=== PATIENT | male | born 1945 | race African-American/Black ===

== ENCOUNTER 2016-12-18 11:40 | Emergency (ER) | payer OTHER ==
[~2016-12-18] VITALS: Ht 175.3 cm; Wt 93.6 kg
[~2016-12-18 11:40] MED LIST: ALBU8.5H IH; HYDR-3971 PO; LOVA20 PO; NIFE-4 PO; OMEP20 PO
[2016-12-18] MEDS ORDERED: AMIT50TA3 PO (11:51)
[2016-12-18] MEDS ORDERED: GABA-531 PO (11:51)
[2016-12-18] MEDS ORDERED: KETOROLAC TROMETHAMINE 30 MG/ML VIAL IVP ONE (13:00)
[2016-12-18 13:10] VITALS: BP 139/79
== END 2016-12-18 13:36 | disposition home or self-care (01) ==
LOC: EMS 11:42
DX: M79.641 Pain in right hand (principal); M79.642 Pain in left hand; E78.00 Pure hypercholesterolemia, unspecified; I10 Essential (primary) hypertension; F17.210 Nicotine dependence, cigarettes, uncomplicated
CPT/HCPCS: 96374; 99284; J1885

== ENCOUNTER 2016-12-19 11:38 | Emergency (ER) | payer OTHER ==
[~2016-12-19] VITALS: Ht 175.3 cm; Wt 93.6 kg
[~2016-12-19 11:38] MED LIST changes: +AMIT50TA3 PO; +GABA-531 PO
[2016-12-19 12:49] VITALS: BP 133/69
[2016-12-19] MEDS ORDERED: LORazepam 1 MG TABLET PO ONE (13:30)
== END 2016-12-19 13:36 | disposition home or self-care (01) ==
LOC: EMS 11:41
DX: M79.622 Pain in left upper arm (principal); M79.621 Pain in right upper arm; G47.00 Insomnia, unspecified; F41.9 Anxiety disorder, unspecified; E78.00 Pure hypercholesterolemia, unspecified; I10 Essential (primary) hypertension; F17.210 Nicotine dependence, cigarettes, uncomplicated
CPT/HCPCS: 99283; 99406

== ENCOUNTER 2018-09-10 08:47 | Emergency (ER) | payer OTHER ==
[~2018-09-10] VITALS: Ht 170.2 cm; Wt 86.4 kg
[~2018-09-10 08:47] MED LIST changes: -ALBU8.5H IH; +ALBU8.5H8 IH
[2018-09-10 10:06] LABS: HEMOGLOBIN 7.8 g/dL (13.5-17.5); MEAN CORPUSCULAR HEMOGLOBIN 27.4 pg (26.0-34.0); MEAN CORPUSCULAR HGB CONC 27.8 G/dL (31.0-37.0); MEAN CORPUSCULAR VOLUME 99 fL (80-100); RED BLOOD CELL COUNT(AUTO) 2.84 MIL/uL (4.50-5.90); RED CELL DISTRIBUTION WIDTH 17.5 % (11.5-14.5)
[2018-09-10 10:08] LABS: ANION GAP 13 mmol/L (8-16); CALCIUM, TOTAL 9.1 mg/dL (8.8-10.5); CARBON DIOXIDE 23 mmol/L (22-29); CHLORIDE 103 mmol/L (98-107); CREATININE 1.15 mg/dL (0.60-1.30); GLUCOSE,RANDOM 115 mg/dL (70-110); SODIUM SERUM 139 mmol/L (136-145); UREA NITROGEN, BLOOD 13 mg/dL (7-18)
[2018-09-10 10:09] LABS: GLOMERULAR FILTR. RATE CALC > 60 mL/min (>60)
[2018-09-10 10:14] LABS: ALANINE AMINOTRANSFERASE 12 U/L (12-78); ALBUMIN 3.5 g/dL (3.4-5.0); ALKALINE PHOSPHATASE 67 U/L (46-116); ASPARTATE AMINOTRANSFERASE 15 U/L (15-37); BILIRUBIN,TOTAL 0.7 mg/dL (0.1-1.0)
[2018-09-10 11:22] LABS: BAND NEUTROPHILS % (MANUAL) 20 % (0-5); LYMPHOCYTES % (MANUAL) 21 % (22-44); METAMYELOCYTES % 11 % (0-0); MONOCYTES % (MANUAL) 7 % (2-9); MYELOCYTES % 8 % (0-0); PROMYELOCYTES % 1 (0-0); SEGMENTED NEUTROPHILS % 32 % (40-70)
[2018-09-10 11:24] LABS: PLATELET COUNT (AUTO) 38 K/uL (150-450)
[2018-09-10 13:41] VITALS: BP 135/53
== END 2018-09-10 10:51 | disposition left against medical advice (07) ==
LOC: EMS 08:48
DX: D72.829 Elevated white blood cell count, unspecified (principal); D64.9 Anemia, unspecified; I10 Essential (primary) hypertension; E78.00 Pure hypercholesterolemia, unspecified; F17.210 Nicotine dependence, cigarettes, uncomplicated

== ENCOUNTER 2018-09-14 08:16 | Inpatient (IN) | payer OTHER ==
[~2018-09-14] VITALS: Ht 175.3 cm; Wt 94.8 kg
[2018-09-14 09:30] LABS: ANION GAP 9 mmol/L (8-16); CARBON DIOXIDE 25 mmol/L (22-29); CHLORIDE 103 mmol/L (98-107); CREATININE 1.18 mg/dL (0.60-1.30); GLUCOSE,RANDOM 119 mg/dL (70-110); POTASSIUM 4.4 mmol/L (3.5-5.1); SODIUM SERUM 137 mmol/L (136-145); UREA NITROGEN, BLOOD 14 mg/dL (7-18)
[2018-09-14 09:33] LABS: GLOMERULAR FILTR. RATE CALC > 60 mL/min (>60)
[2018-09-14 09:36] LABS: ALANINE AMINOTRANSFERASE 15 U/L (12-78); ALBUMIN 3.5 g/dL (3.4-5.0); ALKALINE PHOSPHATASE 68 U/L (46-116); ASPARTATE AMINOTRANSFERASE 15 U/L (15-37); BILIRUBIN,TOTAL 0.6 mg/dL (0.1-1.0)
[2018-09-14 09:39] LABS: HEMATOCRIT 28.3 % (41-53); HEMOGLOBIN 7.6 g/dL (13.5-17.5); MEAN CORPUSCULAR HEMOGLOBIN 26.4 pg (26.0-34.0); MEAN CORPUSCULAR HGB CONC 26.9 G/dL (31.0-37.0); MEAN CORPUSCULAR VOLUME 99 fL (80-100); PLATELET COUNT (AUTO) 33 K/uL (150-450); RED BLOOD CELL COUNT(AUTO) 2.87 MIL/uL (4.50-5.90); RED CELL DISTRIBUTION WIDTH 18.7 % (11.5-14.5)
[2018-09-14 09:48] LABS: BAND NEUTROPHILS % (MANUAL) 34 % (0-5); BLASTS, MANUAL % 1 (0-0); LYMPHOCYTES % (MANUAL) 3 % (22-44); MYELOCYTES % 7 % (0-0); SEGMENTED NEUTROPHILS % 30 % (40-70)
[2018-09-14 10:09] LABS: APPEARANCE,URINE CLOUDY (CLEAR); GLUCOSE, URINE (UA) NEGATIVE (NEGATIVE); KETONES,URINE NEGATIVE (NEGATIVE); LEUKOCYTE ESTERASE ,URINE TRACE (NEGATIVE); NITRATE,URINE NEGATIVE (NEGATIVE); OCCULT BLOOD,URINE NEGATIVE (NEGATIVE); PH,URINE 5.5 (5.0-8.0); PROTEIN,URINE TRACE (NEGATIVE)
[2018-09-14 10:20] LABS: BILIRUBIN,URINE PRELIM. POSITIVE (NEGATIVE)
[2018-09-14 10:21] LABS: BACTERIA,URINE Moderate /HPF (None Seen); RBC,URINE None Seen /HPF (0-2); SQUAMOUS EPITHELIAL CELL,UR Many /LPF (None Seen); WBC,URINE 0-2 /HPF (0-5)
[2018-09-14] MEDS ORDERED: SODIUM CHLORIDE 0.9% 1,000 ML IV ONE (10:45)
[2018-09-14 10:56] LABS: METAMYELOCYTES % 15 % (0-0); REACTIVE LYMPHOCYTES 10 % (0-0)
[2018-09-14] MEDS ORDERED: IOVERSOL 350 MG/ML 150 ML VIAL ONE (11:44)
[2018-09-14] MEDS ORDERED: SODIUM CHLORIDE 0.9% 100 ML ONE (11:44)
[2018-09-14] MEDS ORDERED: ONDANSETRON HCL 4 MG/2 ML VIAL IVP PRN ×2 (11:45→12:15)
[2018-09-14] MEDS ORDERED: 0.9% SODIUM CHLORIDE 10 ML SYRINGE IVP PRN (11:45)
[2018-09-14] MEDS ORDERED: ACETAMINOPHEN 325 MG TABLET PO PRN ×2 (11:45→12:15)
[2018-09-14] MEDS ORDERED: HYDROCODONE/ACETAMINOPHEN 5-325 MG TABLET PO PRN (12:15)
[2018-09-14] MEDS ORDERED: MORPHINE SULFATE 2 MG/ML SYRINGE IVP PRN (12:15)
[2018-09-14] MEDS ORDERED: MAGNESIUM HYDROXIDE SUSPENSION 30 ML UDCUP PO PRN (12:15)
[2018-09-14] MEDS ORDERED: BISACODYL 10 MG RECTAL RECTAL SUPPOSITORY PR PRN (12:15)
[2018-09-14] MEDS ORDERED: ZOLPIDEM TARTRATE 5 MG TABLET PO PRN (12:15)
[2018-09-14 12:27] LABS: C-REACTIVE PROTEIN QUANT 1.12 mg/dL (0.00-0.30)
[2018-09-14 12:43] LABS: LACTATE DEHYDROGENASE 358 U/L (85-227)
[2018-09-14 14:45] VITALS: BP 132/66
[2018-09-14 15:03] VITALS: BP 132/66
[2018-09-14] MEDS: HEPARIN SODIUM,PORCINE 5,000 UNITS/ML VIAL SQ SCH ×2 (15:55→23:43)
[2018-09-14] MEDS: GABAPENTIN 300 MG CAPSULE PO SCH ×2 (15:56→19:54)
[2018-09-14 19:53] VITALS: BP 123/61
[2018-09-14] MEDS: DOCUSATE SODIUM 100 MG CAPSULE PO SCH (19:53)
[2018-09-14] MEDS: BISACODYL 5 MG EC TABLET PO SCH (19:54)
[2018-09-14] MEDS ORDERED: AMITRIPTYLINE HCL 50 MG TABLET PO SCH (21:00)
[2018-09-14 23:34] VITALS: BP 121/68
[2018-09-15 05:22] VITALS: BP 124/72
[2018-09-15] MEDS: DOCUSATE SODIUM 100 MG CAPSULE PO SCH (08:07)
[2018-09-15] MEDS: GABAPENTIN 300 MG CAPSULE PO SCH (08:07)
[2018-09-15] MEDS: HEPARIN SODIUM,PORCINE 5,000 UNITS/ML VIAL SQ SCH (08:07)
[2018-09-15] MEDS: BISACODYL 5 MG EC TABLET PO SCH (08:07)
[2018-09-15 08:21] VITALS: BP 121/61
[2018-09-15] MEDS ORDERED: NIFEdipine 30 MG ER TABLET PO SCH (09:00)
[2018-09-15] MEDS ORDERED: PANTOPRAZOLE SODIUM 40 MG DR TABLET PO SCH (09:00)
[2018-09-15] MEDS ORDERED: LOVASTATIN 20 MG TABLET PO SCH (09:00)
[2018-09-15 11:24] VITALS: BP 128/60
[2018-09-15] MEDS ORDERED: BISA10SU8 PR (12:52)
== END 2018-09-15 13:10 | disposition home or self-care (01) | DRG 836 ==
LOC: EMS 08:16 → 5N 12:54
PROVIDERS: ADMIT Internal Medicine; ATTEND Internal Medicine
DX: C95.00 Acute leukemia of unspecified cell type not having achieved remission (principal); D64.9 Anemia, unspecified; I10 Essential (primary) hypertension; J45.909 Unspecified asthma, uncomplicated; G62.9 Polyneuropathy, unspecified; E78.5 Hyperlipidemia, unspecified; Z92.3 Personal history of irradiation; Z85.46 Personal history of malignant neoplasm of prostate; Z92.21 Personal history of antineoplastic chemotherapy; Z85.038 Personal history of other malignant neoplasm of large intestine; K59.09 Other constipation; D69.6 Thrombocytopenia, unspecified; E78.00 Pure hypercholesterolemia, unspecified; F17.200 Nicotine dependence, unspecified, uncomplicated; K21.9 Gastro-esophageal reflux disease without esophagitis
CPT/HCPCS: 74177; 83605; 83615; 84145; 84146; 86140; 87086; 96360; 96372; G0378; J1644; J7030; J7050